=== PATIENT | male | born 1935 | race Caucasian/White ===

== ENCOUNTER 2017-02-04 10:45 | Inpatient (IN) | payer MEDICARE, MEDICAID ==
[~2017-02-04] VITALS: Ht 180.3 cm; Wt 80.7 kg
[~2017-02-04 10:45] MED LIST: ADVAIR INH; ASPIRIN PO; DORZ10DR11 OP; GATI2.5D4; HOMA5DRO8; LATA2.5D7; LEVO500T2 PO; LIPITOR PO; Losartan Potassium PO; Metoprolol Tartrate PO; PLAVIX PO; PRED5DRO16; PRO-AIR
[2017-02-04] MEDS ORDERED: ALBUTEROL SULFATE 2.5 MG/3 ML NEBU NEB ONE (11:15)
[2017-02-04] MEDS ORDERED: methylPREDNISolone SOD SUCC 125 MG/2 ML VIAL IV ONE (11:15)
[2017-02-04] MEDS ORDERED: AZITHROMYCIN IV 500 MG in IV DEXTROSE 5% 250 ML IV ONE (11:15)
[2017-02-04] MEDS ORDERED: CEFTRIAXONE 1 G in IV DEXTROSE 5% 50 ML IV ONE (11:15)
[2017-02-04] MEDS ORDERED: IV NORMAL SALINE 1000 ML BAG IV ONE (11:15)
[2017-02-04] MEDS ORDERED: IPRATROPIUM BROMIDE 0.5 MG/2.5 ML NEBU NEB ONE (11:15)
--- NOTE | 2017-02-04 11:18 | NUR ---
EKG done and handed to personally for review.
[2017-02-04 11:37] LABS: BASOPHILS % (AUTO) 0.7 % (0.0-2.0); EOSINOPHILS # (AUTO) 0.1 K/uL (0.0-0.7); EOSINOPHILS % (AUTO) 3.1 % (0.0-7.0); HEMATOCRIT 38.3 % (36.7-47.1); LYMPHOCYTES # (AUTO) 1.4 K/uL (20.0-40.0); LYMPHOCYTES % (AUTO) 32.3 % (20.5-51.5); MEAN CORPUSCULAR HEMOGLOBIN 29.7 uug (23.8-33.4); MEAN CORPUSCULAR HGB CONC 34 g/dL (32.5-36.3); MEAN CORPUSCULAR VOLUME 87.4 fL (73.0-96.2); MONOCYTES # (AUTO) 0.7 K/uL (2.0-10.0); MONOCYTES % (AUTO) 15.5 % (0.0-11.0); NEUTROPHILS # (AUTO) 2.1 K/uL (1.8-8.9); NEUTROPHILS % (AUTO) 48.4 % (38.5-71.5); PLATELET COUNT (AUTO) 147 K/uL (152-348); RED BLOOD CELL COUNT(AUTO) 4.38 MIL/uL (4.06-5.63); WHITE BLOOD COUNT (AUTO) 4.3 K/uL (3.6-10.2)
[2017-02-04] MEDS ORDERED: ALBUTEROL SULFATE 2.5 MG/ 0.5 ML NEBU ONE (11:50)
[2017-02-04] MEDS ORDERED: IPRATROPIUM BROMIDE 0.5 MG/2.5 ML NEBU ONE (11:50)
[2017-02-04 11:51] LABS: CARBON DIOXIDE 24 mmol/L (21-32); CHLORIDE 94 mmol/L (98-107); CREATININE 0.4 mg/dL (0.6-1.3); GLUCOSE 107 mg/dL (74-106); POTASSIUM 4.2 mmol/L (3.5-5.1); UREA NITROGEN, BLOOD 9 mg/dL (7-18)
[2017-02-04] MEDS ORDERED: CEFTRIAXONE 1 G VIAL ONE (11:51)
[2017-02-04] MEDS ORDERED: methylPREDNISolone SOD SUCC 125 MG/2 ML VIAL ONE (11:52)
[2017-02-04] MEDS ORDERED: AZITHROMYCIN 500 MG VIAL IV ONE (11:52)
--- NOTE | 2017-02-04 12:00 | NUR ---
IV PLACED/ LABS DRAWN SENT/EKG-CXR COMPLETED. LAB JERI BLOOD CX, PT RECIEVED RESP TX . NS BOLUS INFUSING, ZITHROMAX INFUSING. PT POSITIONED FOR COMFORT. AWAITING LAB RESULTS
[2017-02-04 12:06] LABS: ALANINE AMINOTRANSFERASE 21 U/L (16-63); ALKALINE PHOSPHATASE 81 U/L (50-136); ASPARTATE AMINOTRANSFERASE 24 U/L (15-37); BILIRUBIN,DIRECT 0.2 mg/dL (0.0-0.2); BILIRUBIN,TOTAL 0.5 mg/dL (0.2-1.0); TOTAL PROTEIN, SERUM 5.9 g/dL (6.4-8.2)
[2017-02-04 12:13] LABS: BAND % (MANUAL) 2 % (0-10); EOSINOPHILS % (MANUAL) 5 % (0-8); LYMPHOCYTES % (MANUAL) 30 % (20-40); MONOCYTES % (MANUAL) 13 % (2-10); NEUTROPHILS % (MANUAL) 50 % (42-75)
[2017-02-04 12:47] LABS: *BILIRUBIN,URIN NEGATIVE (NEGATIVE); *BLOOD, URINE NEGATIVE (NEGATIVE); *CLARITY,URINE CLEAR (CLEAR); *COLOR,URINE YELLOW (YELLOW); *KETONES,URINE NEGATIVE (NEGATIVE); *PROTEIN,URINE NEGATIVE (NEGATIVE); *UROBILINOGEN,URINE 0.2 E.U./dl (NORMAL); LEUKOCYTE ESTERASE ,URINE NEGATIVE (NEGATIVE); NITRITE, URINE NEGATIVE (NEGATIVE); UGLUCOSE NEGATIVE (NEGATIVE)
[2017-02-04 12:50] LABS: BACTERIA,URINE NONE SEEN /HPF (NONE SEEN); RBC,URINE 0-3 /HPF (0-3); SQUAMOUS EPITHELIAL CELL,UR FEW /HPF (NONE SEEN); WBC,URINE 0-3 /HPF (0-3)
[2017-02-04] MEDS ORDERED: ASPI81TA31 PO (13:31)
[2017-02-04] MEDS ORDERED: LATA2.5D2 LEFTEYE (13:31)
[2017-02-04] MEDS ORDERED: CLOP75TA15 PO (13:31)
[2017-02-04] MEDS ORDERED: METO25TA6 PO (13:31)
[2017-02-04] MEDS ORDERED: ATOR10TA PO (13:31)
--- NOTE | 2017-02-04 13:45 | NUR ---
SBAR GIVEN TO MONIKA IBANEZ. AWAITING ROLLOVER FOR TRANSPORT
--- NOTE | 2017-02-04 14:01 | NUR ---
PT TRANSFERED TO FLOOR
[2017-02-04 15:15] VITALS: BP 158/67
[2017-02-04] MEDS ORDERED: HYDROCODONE/APAP 5-325MG TABLET PO PRN (15:15)
[2017-02-04] MEDS ORDERED: ONDANSETRON 4 MG/2 ML VIAL IV PRN (15:15)
[2017-02-04] MEDS ORDERED: Z GUARD REMEDY PASTE 57 GM TUBE TOP PRN (15:15)
[2017-02-04] MEDS ORDERED: ENOXAPARIN SODIUM 40 MG/0.4 ML DISP.SYRIN SQ SCH (15:15)
[2017-02-04] MEDS ORDERED: ACETAMINOPHEN 325 MG TABLET PO PRN (15:15)
[2017-02-04] MEDS ORDERED: MAGNESIUM HYDROXIDE 30 ML LIQUID UDC PO PRN (15:15)
[2017-02-04] MEDS ORDERED: ZOLPIDEM 5 MG TABLET PO PRN (15:15)
[2017-02-04] MEDS: ASPIRIN 81 MG TAB.CHEW PO SCH (18:30)
[2017-02-04] MEDS ORDERED: FUROSEMIDE 20 MG/2 ML VIAL IV ONE (18:45)
--- NOTE | 2017-02-04 19:30 | NUR ---
PT IN ROOM ALERT AWAKE IN NO ACUTE DISTRESS. STATES HE IS WAITING FOR HIS EYE DROPS. DENIES ANY CHEST PAIN, HEADACHES, OR DIZZINESS. 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 C/O MINIMAL NON PRODUCTIVE COUGH. CALL LIGHT PLACED WITHIN REACH. CONTINUE TO MONITOR.
[2017-02-04 20:05] VITALS: BP 151/95
[2017-02-04] MEDS: ATORVASTATIN 10 MG TABLET PO SCH (20:09)
[2017-02-04] MEDS: METOPROLOL TARTRATE 25 MG TABLET PO SCH (20:09)
[2017-02-04] MEDS: DORZOLAMIDE/TIMOLOL OPHT DROP 10 ML BOTTLE EACHEYE SCH (20:09)
[2017-02-04] MEDS: ENOXAPARIN SODIUM 40 MG/0.4 ML DISP.SYRIN SQ SCH ×2 (20:10→20:25)
--- NOTE | 2017-02-04 20:24 | NUR ---
Sumi SQ HS held d/t plt 147.
[2017-02-05 00:02] VITALS: BP 133/61
--- NOTE | 2017-02-05 01:00 | NUR ---
Pt in room alert awake and states "i'm ok". Minimal non productive cough present. Sinus rhythm to rosio up to low 46bpm noted. Denies any pain or discomfort. Continue to monitor. Call lght placed within reach.
[2017-02-05 04:43] VITALS: BP 151/73
[2017-02-05 06:38] LABS: BASOPHILS % (AUTO) 0.1 % (0.0-2.0); EOSINOPHILS % (AUTO) 0.1 % (0.0-7.0); HEMOGLOBIN 12.8 g/dL (12.5-16.3); LYMPHOCYTES # (AUTO) 0.9 K/uL (20.0-40.0); MEAN CORPUSCULAR HEMOGLOBIN 29.5 uug (23.8-33.4); MEAN CORPUSCULAR HGB CONC 34 g/dL (32.5-36.3); MEAN CORPUSCULAR VOLUME 87.5 fL (73.0-96.2); MONOCYTES # (AUTO) 0.3 K/uL (2.0-10.0); MONOCYTES % (AUTO) 13.2 % (0.0-11.0); NEUTROPHILS % (AUTO) 45.6 % (38.5-71.5); PLATELET COUNT (AUTO) 130 K/uL (152-348); RED BLOOD CELL COUNT(AUTO) 4.34 MIL/uL (4.06-5.63); WHITE BLOOD COUNT (AUTO) 2.1 K/uL (3.6-10.2)
[2017-02-05 06:40] LABS: ALANINE AMINOTRANSFERASE 30 U/L (16-63); ALKALINE PHOSPHATASE 76 U/L (50-136); ASPARTATE AMINOTRANSFERASE 28 U/L (15-37); BILIRUBIN,TOTAL 0.4 mg/dL (0.2-1.0); CARBON DIOXIDE 27 mmol/L (21-32); CHLORIDE 99 mmol/L (98-107); CHOLESTEROL 108 mg/dL (<200); CREATININE 0.4 mg/dL (0.6-1.3); GLUCOSE 133 mg/dL (74-106); HDL CHOLESTEROL 50 mg/dL (40-60); POTASSIUM 3.8 mmol/L (3.5-5.1); TOTAL PROTEIN, SERUM 5.5 g/dL (6.4-8.2); TRIGLYCERIDES 22 MG/DL (30-150); UREA NITROGEN, BLOOD 9 mg/dL (7-18)
[2017-02-05] MEDS: ASPIRIN 81 MG TAB.CHEW PO SCH (08:17)
[2017-02-05] MEDS: DORZOLAMIDE/TIMOLOL OPHT DROP 10 ML BOTTLE EACHEYE SCH ×2 (08:17→17:26)
[2017-02-05] MEDS: LATANOPROST OPHT DROP 2.5 ML BOTTLE LEFTEYE SCH (08:17)
[2017-02-05] MEDS: CLOPIDOGREL 75 MG TABLET PO SCH (08:21)
[2017-02-05] MEDS: METOPROLOL TARTRATE 25 MG TABLET PO SCH ×2 (08:22→20:40)
[2017-02-05 09:28] LABS: LYMPHOCYTES % (MANUAL) 34 % (20-40); MONOCYTES % (MANUAL) 10 % (2-10); NEUTROPHILS % (MANUAL) 56 % (42-75)
[2017-02-05 11:41] VITALS: BP 159/57
[2017-02-05] MEDS: AZITHROMYCIN IV 500 MG in IV DEXTROSE 5% 250 ML IV SCH (12:09)
[2017-02-05] MEDS: CEFTRIAXONE 1 G in IV DEXTROSE 5% 50 ML IV SCH (12:09)
[2017-02-05] MEDS ORDERED: GUAIFENESIN/CODEINE 5 ML LIQUID UDC PO PRN (12:45)
[2017-02-05] MEDS ORDERED: ALBUTEROL SULFATE 2.5 MG/3 ML NEBU NEB PRN (15:15)
[2017-02-05 16:10] VITALS: BP 155/67
[2017-02-05] MEDS ORDERED: FUROSEMIDE 40 MG/4 ML VIAL IV ONE (17:30)
--- NOTE | 2017-02-05 18:30 | NUR ---
PT PRESCRIBED LASIX, PT IS HESITANT TO TAKE THE MEDICATION. PT WAS EXPLAINED THE USE OF LASIX, SIGNS AND SYMPTOMS, AND REASONING FOR TAKING LASIX. PT HAS EDEMA ON THE BILATERAL LOWER EXTREMITIES +2. PT AGREED TO TAKE LASIX.
--- NOTE | 2017-02-05 20:13 | NUR ---
RECEIVED SHIFT REPORT FROM PREVIOUS SHIFT NURSE. PATIENT IS A/OX3, STABLE CONDITION, NO S/S OF DISTRESS. PATIENT SITTING ON SIDE OF THE BED. BED IN LOCKED/LOW POSITION, SIDE RAILS UP X2, CALL LIGHT WITHIN REACH. SAFETY AND COMFORT WILL BE PROVIDED THROUGHOUT SHIFT.
[2017-02-05 20:25] VITALS: BP 125/54
[2017-02-05] MEDS: ATORVASTATIN 10 MG TABLET PO SCH (20:39)
[2017-02-05] MEDS: LACTOBACILLUS RHAMNOSUS GG 1 EACH CAPSULE PO SCH (20:39)
[2017-02-05] MEDS: ENOXAPARIN SODIUM 40 MG/0.4 ML DISP.SYRIN SQ SCH (20:43)
--- NOTE | 2017-02-05 20:43 | NUR ---
REFUSED MEDICATION : LOVENOX 40 MG INJ. PATIENT VERBALIZED, " I DO NOT WANT IT, I AM TAKING ASPIRIN AND PLAVIX. IF I AM TAKING THIS SHOT JUST FOR A COUPLE DAYS AND GO HOME, THERE'S NO DIFFERENCE." EDUCATED PATIENT IMPORTANCE OF HAVING LOVENOX SHOT. PATIENT'S PLATELET LEVELS ARE NOW. PATIENT CONTINUES TO REFUSE.
[2017-02-06 00:25] VITALS: BP 137/80
[2017-02-06 05:03] VITALS: BP 125/47
--- NOTE | 2017-02-06 06:16 | NUR ---
PATIENT SLEPT THROUGH MAJORITY OF THE NIGHT. NO S/S OF DISTRESS, STABLE CONDITION, AND VITAL SIGNS WNL. NO COMPLAINTS OF PAIN,NO SIGNS OF COUGH, NO SIGNS OF FEVER. PATIENT IS IN SAFE CONDITION/ENVIRONMENT. BED IN LOCKED/LOW POSITION WITH SIDE RAILS UPX2, CALL LIGHT WITHIN REACH. SAFETY AND COMFORT WAS PROVIDED THROUGHOUT SHIFT.
[2017-02-06 07:01] LABS: BASOPHILS % (AUTO) 0.1 % (0.0-2.0); EOSINOPHILS # (AUTO) 0.1 K/uL (0.0-0.7); HEMATOCRIT 39.4 % (36.7-47.1); HEMOGLOBIN 13.3 g/dL (12.5-16.3); LYMPHOCYTES # (AUTO) 1.4 K/uL (20.0-40.0); LYMPHOCYTES % (AUTO) 26.1 % (20.5-51.5); MEAN CORPUSCULAR HEMOGLOBIN 29.4 uug (23.8-33.4); MEAN CORPUSCULAR HGB CONC 34 g/dL (32.5-36.3); MEAN CORPUSCULAR VOLUME 87.1 fL (73.0-96.2); MONOCYTES # (AUTO) 0.5 K/uL (2.0-10.0); MONOCYTES % (AUTO) 9.3 % (0.0-11.0); NEUTROPHILS # (AUTO) 3.4 K/uL (1.8-8.9); NEUTROPHILS % (AUTO) 63.5 % (38.5-71.5); PLATELET COUNT (AUTO) 150 K/uL (152-348); RED BLOOD CELL COUNT(AUTO) 4.52 MIL/uL (4.06-5.63); WHITE BLOOD COUNT (AUTO) 5.4 K/uL (3.6-10.2)
[2017-02-06 07:09] LABS: CARBON DIOXIDE 29 mmol/L (21-32); CHLORIDE 101 mmol/L (98-107); CREATININE 0.4 mg/dL (0.6-1.3); GLUCOSE 85 mg/dL (74-106); MAGNESIUM 1.7 mg/dL (1.8-2.4); PHOSPHOROUS 3.1 mg/dL (2.5-4.9); POTASSIUM 3.6 mmol/L (3.5-5.1); UREA NITROGEN, BLOOD 9 mg/dL (7-18)
--- NOTE | 2017-02-06 08:00 | NUR ---
Pt pakistani speaking but able to make his needs known. Pt had wheezing and coughing - RT to give HHN tx. Pt still coughs out green sputum. Edema noted on LE's +3 on right leg and +2 on left leg. Pt ambulatory with good balance. Call light is within reach.
[2017-02-06] MEDS: ASPIRIN 81 MG TAB.CHEW PO SCH (08:31)
[2017-02-06] MEDS: METOPROLOL TARTRATE 25 MG TABLET PO SCH (08:32)
[2017-02-06] MEDS: LACTOBACILLUS RHAMNOSUS GG 1 EACH CAPSULE PO SCH ×2 (08:32→20:49)
[2017-02-06] MEDS: DORZOLAMIDE/TIMOLOL OPHT DROP 10 ML BOTTLE EACHEYE SCH ×2 (08:33→17:51)
[2017-02-06] MEDS: CLOPIDOGREL 75 MG TABLET PO SCH (08:33)
[2017-02-06] MEDS: LATANOPROST OPHT DROP 2.5 ML BOTTLE LEFTEYE SCH (08:33)
[2017-02-06] MEDS: IPRATROPIUM BROMIDE 0.5 MG/2.5 ML NEBU NEB PRN ×2 (09:21→15:09)
[2017-02-06] MEDS: ALBUTEROL SULFATE 2.5 MG/ 0.5 ML NEBU NEB PRN ×2 (09:21→15:09)
[2017-02-06] MEDS ORDERED: POTASSIUM CHLORIDE 20 MEQ POWDER PACKET PO ONE (11:00)
[2017-02-06 11:07] VITALS: BP 139/58
[2017-02-06] MEDS ORDERED: MAGNESIUM SULFATE/D5W 100 ML IV SCH (11:15)
[2017-02-06] MEDS: MAGNESIUM SULFATE/D5W 100 ML IV SCH ×2 (11:33→12:42)
--- NOTE | 2017-02-06 12:00 | NUR ---
Used salicylic acid blender phone [facility] #[phone] for [place] secondary to pt was refusing Kclor con supplement. Discussed risked and benefits of kclor con and mag pt agreeable to take medicines.
[2017-02-06] MEDS: CEFTRIAXONE 1 G in IV DEXTROSE 5% 50 ML IV SCH (12:41)
[2017-02-06] MEDS: AZITHROMYCIN IV 500 MG in IV DEXTROSE 5% 250 ML IV SCH (12:42)
[2017-02-06 15:28] VITALS: BP 104/51
--- NOTE | 2017-02-06 16:50 | NUR ---
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 VSS pt asymptomatic. b/p 129/51- hr 65- 95% o2 sat on R/A. Will notify PMD.
--- NOTE | 2017-02-06 17:30 | NUR ---
Spoke with Dr Dubois spoke strips from surveillance system monitor of pauses on tele. Beta zuly metropolol d/c.
--- NOTE | 2017-02-06 18:46 | NUR ---
Pt is in no acute distress. Call light is within reach. Spoke with daughter MAUREEN 5x today re: pt condition.
[2017-02-06 19:00] VITALS: BP 127/54
--- NOTE | 2017-02-06 19:20 | NUR ---
RECEIVED PATIENT AWAKE, AMBULATING INSIDE THE ROOM. DENIES ANY PAIN/DISCOMFORTS AT THIS TIME. BOTH PEDAL/ANKLE WITH 2-3+ EDEMA. CONTINUE CARE PLANNED.
[2017-02-06] MEDS: ATORVASTATIN 10 MG TABLET PO SCH (20:49)
[2017-02-06] MEDS: ENOXAPARIN SODIUM 40 MG/0.4 ML DISP.SYRIN SQ SCH ×2 (20:50→21:00)
--- NOTE | 2017-02-06 21:10 | NUR ---
PATIENT REFUSED LOVENOX, STATING HE IS NOT TAKING ANY. MEDICATION WASTED. CHARGE NURSE AWARE.
[2017-02-07] VITALS: BP 121/56
[2017-02-07 04:00] VITALS: BP 144/58
--- NOTE | 2017-02-07 06:06 | NUR ---
VS STABLE. SLEPT WELL. NO COMPLAINT PRESENTED ALL NIGHT. ALL NEEDS ATTENDED AND MET. NO SIGNIFICANT EVENT REPORTED. CONTINUE CARE PLANNED.
[2017-02-07 06:56] LABS: CARBON DIOXIDE 29 mmol/L (21-32); CHLORIDE 101 mmol/L (98-107); GLUCOSE 93 mg/dL (74-106); POTASSIUM 4.1 mmol/L (3.5-5.1); UREA NITROGEN, BLOOD 11 mg/dL (7-18)
[2017-02-07 06:57] LABS: CREATININE 0.4 mg/dL (0.6-1.3); PHOSPHOROUS 3.4 mg/dL (2.5-4.9)
[2017-02-07 07:11] LABS: BASOPHILS % (AUTO) 0.2 % (0.0-2.0); EOSINOPHILS # (AUTO) 0.1 K/uL (0.0-0.7); EOSINOPHILS % (AUTO) 2.3 % (0.0-7.0); HEMATOCRIT 41.1 % (40-50); HEMOGLOBIN 13.4 G/DL (14.0-18.0); LYMPHOCYTES # (AUTO) 1.5 K/UL (0.8-4.8); MEAN CORPUSCULAR HEMOGLOBIN 28.9 UUG (27.0-31.0); MEAN CORPUSCULAR HGB CONC 33 g/dL (32.0-37.0); MEAN CORPUSCULAR VOLUME 88.9 FL (82.0-92.0); MONOCYTES # (AUTO) 0.5 K/UL (0.1-1.30); MONOCYTES % (AUTO) 10.5 % (0.0-11.0); NEUTROPHILS # (AUTO) 3.1 K/UL (1.8-8.9); PLATELET COUNT (AUTO) 164 K/UL (150-450); RED BLOOD CELL COUNT(AUTO) 4.63 MIL/UL (4.7-6.1); WHITE BLOOD COUNT (AUTO) 5.2 K/UL (4.0-11.2)
[2017-02-07] MEDS: DORZOLAMIDE/TIMOLOL OPHT DROP 10 ML BOTTLE EACHEYE SCH (08:27)
[2017-02-07] MEDS: ASPIRIN 81 MG TAB.CHEW PO SCH (08:28)
[2017-02-07] MEDS: LATANOPROST OPHT DROP 2.5 ML BOTTLE LEFTEYE SCH (08:28)
[2017-02-07] MEDS: LACTOBACILLUS RHAMNOSUS GG 1 EACH CAPSULE PO SCH (08:28)
--- NOTE | 2017-02-07 08:30 | NUR ---
PT AMBULATED AROUND THE YATES WITH A WALKER. TOLERATED WELL.
[2017-02-07] MEDS: CLOPIDOGREL 75 MG TABLET PO SCH (08:33)
--- NOTE | 2017-02-07 09:00 | NUR ---
SEEN AND EXAMINED BY DR GUADALUPE WITH D/C ORDER. PT WANTED TO GO HOME.
[2017-02-07] MEDS ORDERED: LEVO750T21 PO (10:21)
--- NOTE | 2017-02-07 11:30 | NUR ---
DISCHARGED INSTRUCTION GIVEN TO THE PT. WITH GOOD UNDERSTANDING.
[2017-02-07 11:58] VITALS: BP 147/67
--- NOTE | 2017-02-07 12:30 | NUR ---
PT ATE LUNCH WELL. HEPLOCK REMOVED.
--- NOTE | 2017-02-07 12:45 | NUR ---
PT IS DISCHARGED VIA W/C TO HIS CAR. PT IS DRIVING HOME WITH THE CONSENT OF HIS SON, DAUGHTER AND . CONDITION IS STABLE.
[2017-02-07] MEDS ORDERED: LEVOFLOXACIN 750MG/D5W 750 MG in PREMIXED 1 EACH IV SCH (14:00)
== END 2017-02-07 14:10 | disposition home or self-care (01) | DRG 177 ==
LOC: ER 10:45 → TELE 13:53 → MED 02-07 13:20
PROVIDERS: ADMIT Internal Medicine; ATTEND Internal Medicine
DX: J15.1 Pneumonia due to Pseudomonas (principal); I50.43 Acute on chronic combined systolic (congestive) and diastolic (congestive) heart failure; D69.6 Thrombocytopenia, unspecified; I48.0 Paroxysmal atrial fibrillation; E83.51 Hypocalcemia; E44.1 Mild protein-calorie malnutrition; E87.1 Hypo-osmolality and hyponatremia; J44.0 Chronic obstructive pulmonary disease with (acute) lower respiratory infection; H54.61 Unqualified visual loss, right eye, normal vision left eye; I25.10 Atherosclerotic heart disease of native coronary artery without angina pectoris; Y84.8 Other medical procedures as the cause of abnormal reaction of the patient, or of later complication, without mention of misadventure at the time of the procedure; Y77.3 Surgical instruments, materials and ophthalmic devices (including sutures) associated with adverse incidents; E78.5 Hyperlipidemia, unspecified; Z68.24 Body mass index [BMI] 24.0-24.9, adult; Z90.49 Acquired absence of other specified parts of digestive tract; Z95.1 Presence of aortocoronary bypass graft; Z95.5 Presence of coronary angioplasty implant and graft; Z86.19 Personal history of other infectious and parasitic diseases; Z79.02 Long term (current) use of antithrombotics/antiplatelets; Z79.82 Long term (current) use of aspirin; Z79.899 Other long term (current) drug therapy
CPT/HCPCS: 36415; 70030-TC; 71010; 83605; 83735; 84100; 85025; 85730; 87040; 87070; 87077; 87086; 93005; 93307; A4663; J0456; J0696; J1650; J1940; J1956; J2930; J3475; J3590; J7030; J7040; J7060